=== PATIENT | male | born 1965 | race African-American/Black ===

== ENCOUNTER 2016-12-30 08:57 | Emergency (ER) | payer OTHER ==
[~2016-12-30] VITALS: Ht 167.6 cm; Wt 86.9 kg
[~2016-12-30 08:57] MED LIST: PREDNISONE20 MG PO; TESSALON PERLE100 MG PO; VENTOLIN HFA18 GM IH; ZITHROMAX250 MG PO
[2016-12-30] MEDS ORDERED: NORCO 5/3251 TABLET PO (10:25)
[2016-12-30] MEDS ORDERED: PREDNISONE50 MG PO (10:25)
[2016-12-30 11:09] VITALS: BP 131/75
== END 2016-12-30 11:09 | disposition home or self-care (01) ==
LOC: EME 08:57
DX: M54.9 Dorsalgia, unspecified (principal); R23.8 Other skin changes; M79.604 Pain in right leg; M79.605 Pain in left leg
CPT/HCPCS: 99281; 99284

== ENCOUNTER → 2017-09-17 | Outpatient (CLI) | payer BC ==
[~2017-09-17] MED LIST changes: +NORCO 5/3251 TABLET PO; +PREDNISONE50 MG PO
== END | disposition home or self-care (01) ==
LOC: RAD 09-11 15:00
PROC: 00JU3ZZ Inspection of Spinal Canal, Percutaneous Approach (ICD-10-PCS; principal; 2017-09-17)
DX: M62.81 Muscle weakness (generalized) (principal); Z53.09 Procedure and treatment not carried out because of other contraindication
CPT/HCPCS: 62270; 77003; 82040 90; 82042 90; 82164 90; 82784 90; 82945; 83916 90; 84157; 86592 90; 86617 90; 86618 90; 87070; 87205; 87529 90; 89051

== ENCOUNTER → 2017-10-08 | Outpatient (CLI) | payer BC ==
[2017-10-08 16:25] LABS: APPEARANCE CLEAR/COLORLESS; CSF TUBE NUMBER TUBE #3
[2017-10-08 16:32] LABS: RED CELL COUNT 6 /MM^3 (0-1); WHITE CELL COUNT 1 /MM^3 (0-5)
[2017-10-08 16:33] LABS: CSF PROTEIN 51 mg/dL (15-45)
[2017-10-08 16:39] LABS: GLUCOSE, CSF 64 mg/dL (40-80)
== END | disposition home or self-care (01) ==
LOC: RAD 14:41
PROVIDERS: Psychiatry & Neurology Neurology
PROC: 009U3ZZ Drainage of Spinal Canal, Percutaneous Approach (ICD-10-PCS; principal; 2017-10-08)
DX: G04.91 Myelitis, unspecified (principal)
CPT/HCPCS: 62270; 77003; 82040 90; 82042 90; 82164 90; 82784 90; 82945; 83916 90; 84157; 86592 90; 86617 90; 86618 90; 87070; 87116; 87205; 87206; 87529 90; 88108; 89051